=== PATIENT | male | born 1965 | race Caucasian/White ===

== ENCOUNTER → 2020-02-24 | Outpatient (CLI) | payer OTHER ==
--- NOTE | 2020-02-24 09:16 | MRI ---
EXAM DESCRIPTION: Shoulder,Left CLINICAL HISTORY: 54 years, Male, ROTATOR CUFF TEAR. Left shoulder pain, limited range of motion. Possible lifting injury, felt pop. COMPARISON: Radiographs 02/20/2020. TECHNIQUE: MRI of the left shoulder was performed with multiplanar multi sequence imaging without intravenous contrast. FINDINGS: Rotator tendons: Supraspinatus mild insertional tendinosis with intermediate grade partial-thickness bursal surface tear at the middle critical zone fibers (up to 40-50% tendon thickness) measuring approximately 7 mm in AP dimension (701 image eight) without tendon retraction. Trace fluid/interstitial fissuring in between the supraspinatus and infraspinatus tendons extending towards the myotendinous junction. Infraspinatus tendon low-grade bursal surface tears at the anterior critical zone fibers. The subscapularis and teres minor tendons are intact. Rotator muscles: No rotator cuff muscle atrophy. Glenoid labrum: Limited evaluation of the labrum demonstrate posterior inferior labrum (approximately 8:00 position) small nondisplaced tear at the chondral labral junction with tiny 3 mm paralabral cyst (series 301 image 10). Mild degenerative attenuation of the inferior labrum. Acromion: The acromion morphology is type two. Mild lateral downsloping acromion with small lateral subacromial enthesophyte. Bone and joints: Early glenohumeral joint osteoarthrosis with small marginal osteophytosis. Mild thinning of the superior humeral head articular cartilage. No full-thickness cartilage defect. No focal bone marrow contusion or fracture. Biceps tendon: Normal course and morphology of the biceps tendon long head within the bicipital groove. The biceps labral anchor appears intact. Soft tissues: No focal muscle strain or edema. Mild to moderate subacromial/subdeltoid bursitis. IMPRESSION: 1. Supraspinatus mild tendinosis with intermediate grade partial-thickness bursal surface tear. No tendon retraction. 2. Infraspinatus tendon low-grade partial-thickness tears. 3. No rotator cuff muscle atrophy. 4. Posterior inferior glenoid labrum small tear with tiny paralabral cyst. 5. Lateral downsloping of the acromion with small small lateral subacromial enthesophyte can be a cause for external impingement on the rotator cuff. 6. Mild to moderate subacromial/subdeltoid bursitis. Electronically signed by: Don Alvarez DO 02/24/2020 9:14 AM CDT
== END ==
LOC: MRI 07:00
PROVIDERS: ATTEND Nurse Practitioner Family
DX: M71.812 Other specified bursopathies, left shoulder (principal); M75.92 Shoulder lesion, unspecified, left shoulder; S46.012A Strain of muscle(s) and tendon(s) of the rotator cuff of left shoulder, initial encounter; S43.432A Superior glenoid labrum lesion of left shoulder, initial encounter; M25.619 Stiffness of unspecified shoulder, not elsewhere classified